=== PATIENT | female | born 1950 | race Caucasian/White ===

== ENCOUNTER 2024-03-29 08:06 | Outpatient (CLI) | payer MEDICARE, SELFPAY ==
--- NOTE | ~2024-03-29 | MR_ITS ---
MRI of the lumbar spine Clinical History: Right back pain and right-sided sciatica Technique: Axial T2-weighted images, and sagittal T1-weighted, T2-weighted, and T2 fat-sat images wer e acquired. Findings: No fracture seen. There is 3 mm retrolisthesis of L1 over L2. No suspicious bone marrow sig nal abnormality seen. There are mild reactive marrow signal changes due to degenerative disc disease, most and without the L3-L4 disc space. At L1-L2, there is severe degenerative disc narrowing. There is mild disc bulge with advanced facet a rthropathy. There is minimal central canal stenosis. There is severe right neural foraminal narrowing , and moderate left neural foraminal narrowing. L2-L3, there is moderate to advanced degenerative disc narrowing. Disc bulge and severe facet arthrop athy result in moderate spinal canal stenosis/thecal sac compression. There is severe right neural fo raminal narrowing. There is minimal left neural foraminal narrowing. At L3-L4, there is severe degenerative disc narrowing. There is diffuse disc bulge with probable supe rimposed central disc extrusion extending superiorly. There is severe facet arthropathy. These factor s result in severe spinal canal stenosis/thecal sac compression. There is severe right neural foramin al narrowing and mild left neural foraminal narrowing. L4-L5, there is advanced degenerative disc narrowing. Disc bulge and severe facet arthropathy result in severe spinal canal stenosis/thecal sac compression. There is severe left neural foraminal narrowi ng, and minimal right neural foraminal narrowing. At L5-S1, there is degenerative disc narrowing. There is disc bulge and facet arthropathy. No leo c anal stenosis. There is moderate bilateral neural foraminal narrowing. Paravertebral soft tissues are unremarkable. Impression: Severe degenerative spondylosis throughout the lumbar spine, as detailed above. There is multilevel s eneida canal stenosis and neural foraminal narrowing. 3 mm retrolisthesis of L1 over L2. Reviewed, dictated and finalized at location M. Impression: Severe degenerative spondylosis throughout the lumbar spine, as detailed above. There is multilevel spinal canal stenosis and neural foraminal narrowing. 3 mm retrolisthesis of L1 over L2.
== END 2024-03-29 08:07 | disposition home or self-care (01) ==
LOC: MICIMG 08:09
PROVIDERS: PCP Orthopaedic Surgery; Visit Provider Orthopaedic Surgery
DX: M54.41 Lumbago with sciatica, right side (principal); G89.29 Other chronic pain; M47.896 Other spondylosis, lumbar region
CPT/HCPCS: 72148